=== PATIENT | female | born 1965 | race Caucasian/White ===

== ENCOUNTER → 2017-03-02 | Outpatient (CLI) | payer BC ==
[~2017-03-02] MED LIST: CLARITIN 1010 MG/TAB PO; IBUPROFEN200 MG PO; ORTHO-NOVUM 1/31 TA1 PO
== END ==
LOC: MC.RAD 14:55
DX: Z12.31 Encounter for screening mammogram for malignant neoplasm of breast (principal)

== ENCOUNTER → 2018-04-05 | Outpatient (CLI) | payer BC | LOC: MC.RAD 09:10 | DX: Z12.31 Encounter for screening mammogram for malignant neoplasm of breast (principal); N63.10 Unspecified lump in the right breast, unspecified quadrant ==

== ENCOUNTER → 2018-04-12 | Outpatient (CLI) | payer BC | LOC: MC.RAD 07:51 | DX: N60.01 Solitary cyst of right breast (principal); N63.10 Unspecified lump in the right breast, unspecified quadrant | CPT/HCPCS: G0279 ==

== ENCOUNTER → 2019-07-11 | Outpatient (CLI) | payer BC | LOC: MC.RAD 06-16 07:00 | DX: Z12.31 Encounter for screening mammogram for malignant neoplasm of breast (principal); N63.10 Unspecified lump in the right breast, unspecified quadrant ==

== ENCOUNTER → 2020-07-13 | Outpatient (CLI) | payer BC | LOC: MC.RAD 07:19 | DX: Z12.31 Encounter for screening mammogram for malignant neoplasm of breast (principal) ==

== ENCOUNTER 2021-01-02 05:35 | Inpatient (IN) | payer BC ==
[2021-01-02] VITALS (14 sets, daily range): BP systolic 106–135; BP diastolic 37–68; PULSE 59–75; TEMP 97.7–98.2
[~2021-01-02] VITALS: Ht 160 cm; Wt 68.1 kg
[~2021-01-02 05:35] MED LIST changes: +ESTRACE 1MG1 MG/TAB PO; -ORTHO-NOVUM 1/31 TA1 PO
[2021-01-02 06:43] LABS: HEMATOCRIT 38.8 % (37.0-47.0); HEMOGLOBIN 12.7 g/dl (12.5-16.0); MEAN CELL VOLUME 90 fl (80.0-100.0); MEAN CORPUSCULAR HEMOGLOBIN 30 pg (27.0-31.0); MEAN CORPUSCULAR HGB CONC 33 g/dl (33.0-37.0); MEAN PLATELET VOLUME 9.7 fl (7.4-10.4); PLATELET COUNT 304 K/mm3 (130-400); RED BLOOD COUNT 4.29 M/mm3 (4.10-5.30); REDCELL DISTRIBUTION WIDTH-CV 13.4 % (11.5-14.5)
[2021-01-02] MEDS ORDERED: CLARITIN 1010 MG/TAB PO (07:16)
[2021-01-02 07:18] LABS: CALCIUM 9.4 mg/dL (8.4-10.2); CREATININE, serum 0.65 (0.52-1.25)
[2021-01-02 07:21] LABS: PROTHROMBIN TIME 10.6 SECONDS (9.7-12.8)
--- NOTE | 2021-01-02 08:24 | NUR ---
Pt to procedure,report to Damon Yañez.
--- NOTE | 2021-01-02 10:15 | NUR ---
Pt arrived to medical unit room 352 at this time. Post op vitals stable. Pt reports mild discomfort to left chest incision but declines intervention at this time. Left arm in sling and ice pack placed to operative site. Dressing CDI. Med rec and admission assessment completed, pt oriented to room. Denies needs. Call light in reach.
--- NOTE | 2021-01-02 11:00 | NUR ---
Informed by pt's that she recently had thyroid radiation and was told to avoid women. Contacted [facility] where radiation was done to find out about precautions, was informed pt's isolation precautions should be continued through tomorrow 01/03. Appropriate signage placed outside pt's room w/isolation cart. Report given to Rosenda CUNNINGHAM who will be assuming care at this time.
--- NOTE | 2021-01-02 18:20 | NUR ---
Patient has done well since arriving to the floor from he pacemaker placement. Patient has complained of mild pain in her shoulder, tylenol and ice have been helping. All VS have been stable. Patient tolerated food well. was in the room for most of the day and assisted the patient with anything she needed. Patient was independent in her room.
--- NOTE | 2021-01-02 21:36 | NUR ---
Assessment completed, alert and oriented. VS are stable, she complains of pain in the insicion site of PACE placement. Cold compress changed to new one. Insicion site is dry and intact, sling in left forearm is in placed. She asked for something to sleep. Complains of being nauseated and pain rated 3/10. RN called DR Roberts for Melatonin. Tylenol 325, nausea meds and melatonin given at around 2049. Patient is ready to sleep. Continue to follow.
[2021-01-03 03:52] VITALS: BP 132/63; PULSE 85; TEMP 98
[2021-01-03 08:00] VITALS: BP 125/42; PULSE 72; TEMP 98.1
[2021-01-03 08:11] LABS: BASO % 0.3 % (0.0-2.0); EOS # 0.1 (0.0-0.7); EOS % 0.9 % (0-4.0); GRAN # 5.6 (1.4-6.5); HEMATOCRIT 38.5 % (37.0-47.0); HEMOGLOBIN 12.5 g/dl (12.5-16.0); LYMPH # 0.6 (1.2-3.4); LYMPH % 8.7 % (20.0-51.0); MEAN CELL VOLUME 92 fl (80.0-100.0); MEAN CORPUSCULAR HEMOGLOBIN 30 pg (27.0-31.0); MEAN CORPUSCULAR HGB CONC 33 g/dl (33.0-37.0); MEAN PLATELET VOLUME 9.8 fl (7.4-10.4); MONO # 0.5 (0.1-0.6); MONO % 6.8 % (1.7-9.3); PLATELET COUNT 265 K/mm3 (130-400); RED BLOOD COUNT 4.18 M/mm3 (4.10-5.30); REDCELL DISTRIBUTION WIDTH-CV 13.7 % (11.5-14.5)
[2021-01-03 08:21] LABS: CALCIUM 8.8 mg/dL (8.4-10.2); CREATININE, serum 0.59 (0.52-1.25); POTASSIUM 4.1 mmol/L (3.4-5.0)
--- NOTE | 2021-01-03 09:56 | NUR ---
Initial visit; Patient thanked [employer] for looking in on her and offering God's blessings.
--- NOTE | 2021-01-03 10:27 | NUR ---
SW met with the patient to discuss discharge plan. The patient lives alone in [place]. She reports independence with ADLs and does not have any DME. The patient's primary care provider is Glenna Corona, nurse practitioner at the [facility] and she receives her medications from [facility]. She reports no diffiuculties obtaining her meds. The patient does not have a DPOA-HC and she was not interested in completing one while here. The patient states that she is legally , but that she still wants her ex-, Devyn (ph#[phone]), as her emergency contact. She does not have any children. The patient plans to return home upon discharge. No additional needs at this time. *Discharge plan: home*
--- NOTE | 2021-01-03 11:59 | NUR ---
Patient had chest tube placed at approx. 1000. Handled procedure well, besides some pain in the side. Physician ordered PRN morphine IV to help with the pain. First dose was administered and the patient handled this well. Pacemaker interrogation was completed this morning as well. Patient has not had any other complaints this morning.
[2021-01-03 12:00] VITALS: BP 120/49; PULSE 67; TEMP 98.1
[2021-01-03 16:49] VITALS: BP 111/43; PULSE 113; TEMP 98.3
[2021-01-03 20:00] VITALS: BP 118/48; PULSE 85; TEMP 98.2
--- NOTE | 2021-01-03 21:24 | NUR ---
Patient is lying in bed, alert and oriented x 4. Denies pain, nausea or vomiting. She is in 1 L oxygen nasal canula. The chest draining is in dependent position. Tele in place. No further needs at this time. Call light within reach.
[2021-01-04 04:18] VITALS: BP 117/58; PULSE 70; TEMP 97.9
--- NOTE | 2021-01-04 07:00 | NUR ---
Report receicved from Mariah RN. Pt in bed resting, hoping to dishcarge today. Will conitnue to monitor.
--- NOTE | 2021-01-04 07:00 | NUR ---
Patient has had a calm nigh. The sucction was stoped as ordered. She is no longer in O2 oxygen, levels over 96% at room air. Shift report will be given to day nurse. .
[2021-01-04 09:00] VITALS: BP 117/64; PULSE 81; TEMP 98.1
--- NOTE | 2021-01-04 09:00 | NUR ---
Dr. Shah rounded, told to place pt back to continuous suction. Resting in bed and wants to do own hygeine. Chest tube back to low continuous, verified with OCTAVIO Rodriguez on surgical that it looks good. called OCTAVIO Justice with [facility] and relayed that pt is refusing IV site, they are aware. PRN pain meds given and orders received from Dr. Shah per pt request for pain in L chest tube site. Pt states it is very sore. L chest pacemaker site is well approximated and closed with steristrips. Will continue to monitor.
[2021-01-04 12:00] VITALS: BP 114/45; PULSE 81; TEMP 98.6
[2021-01-04 16:54] VITALS: BP 122/54; PULSE 97; TEMP 98.4
--- NOTE | 2021-01-04 19:22 | NUR ---
Pt has done well over shift. States the ibuprofen and norco really helped her get on top of pain and wants to take them tonight to get some rest. Chest tube to low continuous suction all day, no new drainage noted over shift. Denies needs, will continue to monitor.
[2021-01-04 19:40] VITALS: BP 132/58; PULSE 106; TEMP 98.2
--- NOTE | 2021-01-04 20:00 | NUR ---
Patient is lying in bed, tyred. She is alert and oriented x 4, reports no nausea or vomiting. She just complains about the tubing. Tele in place. Patient required some pain meds to be able to rest at night. Meds provided. No further needs at this time. Call light within reach.
[2021-01-04 23:40] VITALS: BP 117/53; PULSE 81; TEMP 98.2
[2021-01-05 03:47] VITALS: BP 121/51; PULSE 79; TEMP 97.7
--- NOTE | 2021-01-05 07:15 | NUR ---
Patient had a calm night. She didnt complain of pain after having some pain medication before at night. No further needs at this time. Report was given to day nurse.
[2021-01-05 08:48] VITALS: BP 123/68; PULSE 96; TEMP 98
--- NOTE | 2021-01-05 09:59 | NUR ---
Assessment completed, alert/oriented, vital signs stable, reports pain/discomfort at chest tube insertion site, Motrin and [place] given as well as an ICE pack, heimlich valve chest tube to continuous suction, patient denies any shortness of air or resp.difficulty, lungs are CTA throughout, CXR done to re-evaluate pneumothorax, heart RRR/ paced on tele, patient is up in her room independently, awaiting SX and Cardiology eval, patient hoping for dischare home today, she denies other needs at this time
[2021-01-05 11:53] VITALS: BP 138/81; PULSE 98; TEMP 98
[2021-01-05 17:54] VITALS: BP 133/70; PULSE 89; TEMP 97.6
[2021-01-05 19:54] VITALS: BP 130/61; PULSE 69; TEMP 98.6
--- NOTE | 2021-01-05 20:00 | NUR ---
Patient is resting in bed with family in room. Alert and oriented x 4, vital signs stable. No pain, nausea or vomiting. Just the continuous discomfort of the right upper chest. Diminished sounds in the left side of the lungs. Patient is independent ans walks to the restroom and bed without problems. No further needs at this time. Call light within reach.
--- NOTE | 2021-01-05 22:33 | NUR ---
Patient asked for some pain medications to allow her to sleep. She reports some itching and constant discomfort in the left chest. PRN provided.
[2021-01-05 23:57] VITALS: BP 110/59; PULSE 90; TEMP 97.8
[2021-01-06 03:17] VITALS: BP 107/52; PULSE 81; TEMP 97.7
--- NOTE | 2021-01-06 05:39 | NUR ---
Patient has been doing ok at night. She asked for some tylenol to calm her discomfort in the left chest. No further needs at this time. Report will be given to day shift.
[2021-01-06 08:16] VITALS: BP 116/52; PULSE 98; TEMP 98
[2021-01-06 12:32] VITALS: BP 118/48; PULSE 68; TEMP 97.7
--- NOTE | 2021-01-06 12:39 | NUR ---
Assessment completed, alert/oriented ,vital signs stable, denies any resp.difficulty or SOA, lungs are CTA, left sided chest tube remains in placed to contiuous suctions/ appears to still have small air leak and plans to re-evalute tommorow morning, pacemaker incision site looks good/ steri strips intact , paced on tele, patient denies other needs at this time
[2021-01-06 16:36] VITALS: BP 120/57; PULSE 85; TEMP 97.8
[2021-01-06] MEDS ORDERED: CEPHALEXIN500 M1 PO (17:09)
--- NOTE | 2021-01-06 17:33 | NUR ---
reviewed CXR and has decided to pull chest tube and discharge the patient, she tolerated well, no reps.difficulty, instructed to return to ER if SOA or dyspnea develops, discussed incision/ pacemaker activity and bathing restrictions, Tele removed, patient ambulatory and leaving with her , instructed to follow up with PCP and Cardiology as scheduled
== END 2021-01-06 17:36 | disposition home or self-care (01) | DRG 983 ==
LOC: COL.CAR 05:35 → MEDICAL 05:35 → COL.CAR 06:00 → MEDICAL 10:30 → COL.CAR 01-03 11:23 → MEDICAL 01-03 11:24
PROVIDERS: ADMIT Internal Medicine Cardiovascular Disease
PROC: 0W9B00Z Drainage of Left Pleural Cavity with Drainage Device, Open Approach (ICD-10-PCS; principal; 2021-01-03)
PROC: 0JH606Z Insertion of Pacemaker, Dual Chamber into Chest Subcutaneous Tissue and Fascia, Open Approach (ICD-10-PCS; 2021-01-03)
PROC: 02H63JZ Insertion of Pacemaker Lead into Right Atrium, Percutaneous Approach (ICD-10-PCS; 2021-01-03)
PROC: 02HK3JZ Insertion of Pacemaker Lead into Right Ventricle, Percutaneous Approach (ICD-10-PCS; 2021-01-03)
DX: J93.9 Pneumothorax, unspecified (principal); I49.5 Sick sinus syndrome; Z95.0 Presence of cardiac pacemaker
CPT/HCPCS: OP; C1785; C1894; C1898; J0690; J0780; J2250; J2270; J3010; J7030; Q9967

== ENCOUNTER 2023-11-11 08:58 | Day surgery (SDC) | payer BC ==
[~2023-11-11] VITALS: Ht 160.1 cm; Wt 68.6 kg
[2023-11-11] VITALS (10 sets, daily range): BP systolic 114–150; BP diastolic 64–91; PULSE 70–77; TEMP 97.6
[~2023-11-11 08:58] MED LIST changes: +CEPHALEXIN500 M1 PO
[2023-11-11] MEDS ORDERED: SYNTHROID0.125 MG/T PO (09:12)
[2023-11-11] MEDS ORDERED: GAVISCON F1 TAB.CHEW PO (09:14)
[2023-11-11] MEDS ORDERED: VITAMIN D 50,1.25 MG PO (09:14)
[2023-11-11] MEDS ORDERED: 1/2 NS 1,000 ML IV SCH (09:15)
[2023-11-11 09:38] LABS: HEMOGLOBIN 13.4 g/dl (12.5-16.0); MEAN CELL VOLUME 90 fl (80.0-100.0); MEAN CORPUSCULAR HEMOGLOBIN 29 pg (27-31); MEAN CORPUSCULAR HGB CONC 33 g/dl (33.0-37.0); MEAN PLATELET VOLUME 9.8 fl (7.4-10.4); PLATELET COUNT 296 K/mm3 (130-400); RED BLOOD COUNT 4.57 M/mm3 (4.10-5.30); REDCELL DISTRIBUTION WIDTH-CV 12.9 % (11.5-14.5)
[2023-11-11] MEDS ORDERED: LORazepam 1 MG TAB PO ONE (10:00)
[2023-11-11 10:09] LABS: INR 0.9 (0.8-3.0); PROTHROMBIN TIME 9.7 SECONDS (9.7-12.8)
[2023-11-11 10:12] LABS: PARTIAL THROMBOPLASTIN TIME 32.7 SECONDS (26.0-37.0)
[2023-11-11 10:16] LABS: CALCIUM 9.4 mg/dL (8.4-10.2); CREATININE, serum 0.78 mg/dL (0.57-1.11); POTASSIUM 3.8 mEq/L (3.5-4.5)
[2023-11-11] MEDS ORDERED: Nitroglycerin 2% Topical Oint 1 GM UD TD SCH (13:17)
--- NOTE | 2023-11-11 13:22 | NUR ---
See merge for all medication, assessment, intervention, and vital sign times.
[2023-11-11] MEDS ORDERED: niCARdipine (Cath Lab) 100 MCG/ML 10 ML VIAL IA SCH (13:32)
[2023-11-11] MEDS ORDERED: Heparin 1,000 UNITS/ML 10 ML Multi-Dose VIAL IV SCH (13:33)
[2023-11-11] MEDS ORDERED: Midazolam 2 MG/2 ML VIAL IV SCH (13:34)
[2023-11-11] MEDS ORDERED: fentaNYL 50 MCG/ML 2 ML VIAL IV SCH (13:34)
[2023-11-11] MEDS ORDERED: Iohexol 350 - 100 ML VIAL INCOR ONE (13:36)
[2023-11-11] MEDS ORDERED: ASPIRIN E.C. 8181 MG PO (13:57)
[2023-11-11] MEDS ORDERED: EPA FISH OIL1 SGL PO (13:58)
--- NOTE | 2023-11-11 13:59 | NUR ---
Bedside report completed with Willie Jose. Call light within reach, vital signs reviewed, site reviewed, fluids at 100 ml/hr via dial flow. Willie JOSE denies questions/concerns at this time.
[2023-11-11] MEDS ORDERED: Acetaminophen 325 MG TAB PO ONE (15:30)
--- NOTE | 2023-11-11 17:05 | NUR ---
PT TOLERATED RECOVERY PERIOD WELL. VS REMAINED WITHIN NORMAL LIMITS AND RIGHT RADIAL DRESSING REMAINED CLEAN DRY AND INTACT. IV DISCONTINUED UPON DISCHARGE AND PT REMAINED FREE FROM ACUTE CONCERNS AND COMPLAINTS. PT ASSISTED TO MAIN LOBBY VIA WHEELCHAIR AND VERBALIZED UNDERSTANDING OF DISCHARGE INSTRUCTIONS. PT'S RIGHT ARM REMAINED CLEAR FROM SIGNS OF BLEEDING AND HEMATOMA.
== END 2023-11-11 17:17 | disposition home or self-care (01) ==
LOC: COL.CAR 08:58
PROVIDERS: Internal Medicine Cardiovascular Disease
DX: R94.39 Abnormal result of other cardiovascular function study (principal); R07.9 Chest pain, unspecified
CPT/HCPCS: C1769; J1644; J2250; J2404; J3010; Q9967